=== PATIENT | female | born 1945 | race Caucasian/White ===

== ENCOUNTER 2016-08-12 08:39 | Outpatient (CLI) | payer MEDICARE | END 2016-08-12 08:40 | disposition home or self-care (01) | DX: E55.9 Vitamin D deficiency, unspecified (principal); E80.4 Gilbert syndrome; E78.2 Mixed hyperlipidemia; Z79.899 Other long term (current) drug therapy ==

== ENCOUNTER 2017-11-11 08:15 | Outpatient (CLI) | payer OTHER ==
[2017-11-11 08:40] LABS: BASOPHILS % (AUTO) 1.2 %; EOSINOPHILS # (AUTO) 0.4 10^3/uL (0.0-0.7); EOSINOPHILS % (AUTO) 9.2 %; HGB - HEMOGLOBIN 14.1 g/dL (12.0-16.0); LYMPHOCYTES # (AUTO) 1.4 10^3/uL (1.5-3.5); LYMPHOCYTES % (AUTO) 34.8 %; MEAN CORPUSCULAR HEMOGLOBIN 32.7 pg (27.0-31.0); MEAN CORPUSCULAR HGB CONC 34.6 g/dL (32.0-36.0); MEAN CORPUSCULAR VOLUME 94.4 fL (81.0-99.0); MEAN PLATELET VOLUME 7.4 fL (7.9-10.8); MONOCYTES # (AUTO) 0.4 10^3/uL (0.0-1.0); MONOCYTES % (AUTO) 9.2 %; NEUTROPHILS # (AUTO) 1.8 10^3/uL (1.5-6.6); NEUTROPHILS % (AUTO) 45.6 %; PLT - PLATELET COUNT 201 10^3/uL (130-450)
[2017-11-11 09:09] LABS: ALBUMIN 4.2 g/dL (3.2-5.5); ALBUMIN/GLOBULIN RATIO 1.8 (1.0-2.2); ALKALINE PHOSPHATASE 57 IU/L (42-121); ALT ALANINE AMINOTRANSFERASE 20 IU/L (10-60); AST ASPARTATE AMINOTRANSFERASE 24 IU/L (10-42); BILIRUBIN,TOTAL 1.2 mg/dL (0.2-1.0); BUN - BLOOD UREA NITROGEN 20 mg/dL (6-20); CALCIUM 9.2 mg/dL (8.5-10.3); CARBON DIOXIDE - CO2 29 mmol/L (21-32); CHLORIDE 103 mmol/L (101-111); CHOL/HDL RATIO 2.9 (<4.4); CHOLESTEROL 267 mg/dL; CREATININE 0.8 mg/dL (0.4-1.0); GFR - MDRD 71 (>89); GLUCOSE 94 mg/dL (70-100); HDL CHOLESTEROL 91 mg/dL; LDL CHOLESTEROL,CALCULATED 164 mg/dL; LDL/HDL RATIO 1.8 (<4.4); SODIUM 141 mmol/L (135-145); TOTAL PROTEIN 6.5 g/dL (6.7-8.2); VLDL CHOLESTEROL 12 mg/dL
[2017-11-12 13:25] LABS: HEPATITIS C ANTIBODY NON-REACTIVE (NON-REACTIVE)
== END 2017-11-11 08:16 | disposition home or self-care (01) ==
LOC: LAB 08:15
PROVIDERS: ATTEND Physician Assistant Medical
DX: E55.9 Vitamin D deficiency, unspecified (principal); M81.0 Age-related osteoporosis without current pathological fracture; F41.9 Anxiety disorder, unspecified; Z79.899 Other long term (current) drug therapy; Z13.818 Encounter for screening for other digestive system disorders; E78.2 Mixed hyperlipidemia
CPT/HCPCS: 36415; 80053; 80061; 82306; 83721; 84443; 85025; 86803

== ENCOUNTER 2017-11-24 13:25 | Outpatient (CLI) | payer OTHER ==
--- NOTE | 2017-11-24 15:52 | DEXA Report ---
Procedure Date: 11/24/2017 Accession Number: [id number] / [id number] Procedure: DEX - Dexa Spine and/or Hip CPT Code: FULL RESULT: EXAM: DUAL EMISSION X-RAY ABSORPTIOMETRY (DXA) SCAN EXAM DATE: 11/24/2017 02:04 PM. CLINICAL HISTORY: Postmenopausal, steroid use. COMPARISON: None. ADDITIONAL PATIENT INFORMATION: None. TECHNIQUE: Dual energy x-ray absorptiometry (DXA) was performed on a [employer] System. Regions measured at the AP spine, femoral neck, and if needed, forearm. TECHNIQUE LIMITATIONS/EXCLUSIONS: None. FINDINGS: Lumbar Spine: Bone mineral density 0.822 g/sq cm, T-score -3.0, Z-score -1.1. Femoral Neck: Bone mineral density 0.710 g/sq cm, T-score -2.4, Z-score -0.5. Total Hip: Bone mineral density 0.769 g/sq cm, T-score -1.9, Z-score -0.3. IMPRESSION: Osteoporosis. The fracture risk is high. World Health Organization (WHO) Reporting guidelines (based on lowest BMD) for postmenopausal and perimenopausal women, men age 50 years and older: Normal: T-score at or greater than -1.0 Osteopenia: T-score between -1.1 to -2.4 Osteoporosis: T-score at or less than -2.5 RADIA
== END 2017-11-24 13:26 | disposition home or self-care (01) ==
LOC: DI 13:25
PROVIDERS: ATTEND Physician Assistant Medical
DX: M81.0 Age-related osteoporosis without current pathological fracture (principal); Z78.0 Asymptomatic menopausal state
CPT/HCPCS: 77080

== ENCOUNTER 2017-12-22 08:05 | Outpatient (CLI) | payer OTHER ==
--- NOTE | 2017-12-23 09:32 | Mammography Report ---
Reason: SCREENING MAMMO Procedure Date: 12/22/2017 Accession Number: [id number] / [id number] Procedure: EVERARDO - Screening Mammo Dig Bilat CPT Code: FULL RESULT: EXAM: Screening Mammo Dig Bilat DATE: 12/22/2017 8:39 AM CLINICAL HISTORY: 72-year-old female with history of late childbearing and history of breast biopsy. TECHNIQUE: Bilateral CC and MLO views were obtained. COMPARISON: 08/29/2015, 09/08/2013, 09/08/2012, 02/18/2011. FINDINGS: The breasts demonstrate heterogeneously dense fibroglandular parenchyma bilaterally. Typically benign vascular calcifications are seen in the right breast. No suspicious masses, clustered microcalcifications, or regions of architectural distortion are identified. IMPRESSION: Benign findings RECOMMENDATION: Routine annual screening unless otherwise clinically indicated. BIRADS CATEGORY 2: Benign findings STANDARD QUALIFYING STATEMENTS: 1. This examination was reviewed without the aid of Computer-Aided Detection (CAD). 2. A negative or benign imaging report should not delay biopsy if clinically suspicious findings are present. Consider surgical consultation if warrented. More than 5% of cancers are not identified by imaging. 3. Dense breasts may obscure an underlying neoplasm.
== END 2017-12-22 08:06 | disposition home or self-care (01) ==
LOC: DI 08:05
PROVIDERS: ATTEND Physician Assistant Medical
DX: Z12.31 Encounter for screening mammogram for malignant neoplasm of breast (principal)
CPT/HCPCS: 77067

== ENCOUNTER 2019-12-13 10:30 | Outpatient (CLI) | payer MEDICARE | END 2019-12-13 10:31 | disposition home or self-care (01) | LOC: LAB.R 10:30 | PROVIDERS: ATTEND Physician Assistant | DX: Z11.59 Encounter for screening for other viral diseases (principal); Z20.828 Contact with and (suspected) exposure to other viral communicable diseases ==

== ENCOUNTER 2020-01-24 12:25 | Outpatient (CLI) | payer MEDICARE ==
--- NOTE | 2020-01-25 12:02 | Mammography Report ---
BILATERAL DIGITAL SCREENING MAMMOGRAM 3D/2D: 01/24/2020 CLINICAL: Routine screening. Comparison is made to exams dated: 12/22/2017 mammogram and 08/29/2015 mammogram - [facility]. There are scattered fibroglandular elements in both breasts. No significant masses, calcifications, or other findings are seen in either breast. There has been no significant interval change. IMPRESSION: NEGATIVE There is no mammographic evidence of malignancy. A 1 year screening mammogram is recommended. This exam was interpreted at Station ID: [id number]. NOTE: For mammograms, a report in lay terms will be sent to the patient. Approximately 15% of breast malignancies will not be visualized mammographically. In the management of a palpable breast mass, a negative mammogram must not discourage biopsy of a clinically suspicious lesion. Electronically Signed By: Jm peterson/rolando:01/24/2020 17:33:03 ACR BI-RADS Category 1: Negative 3341F PARENCHYMAL PATTERN: (A) - The breast(s) demonstrate(s) scattered fibroglandular densities. BI-RADS CATEGORY: (1) - 1 RECOMMENDATION: (ANNUAL) - Recommend routine annual screening mammography. [id number] 1 year screening LATERALITY: (B)
== END 2020-01-24 12:26 | disposition home or self-care (01) ==
LOC: DI.N 12:25
PROVIDERS: ATTEND Physician Assistant
DX: Z12.31 Encounter for screening mammogram for malignant neoplasm of breast (principal)
CPT/HCPCS: 77063; 77067

== ENCOUNTER 2020-08-15 13:39 | Outpatient (CLI) | payer MEDICARE | END 2020-08-15 13:40 | disposition home or self-care (01) | LOC: COV 13:39 | PROVIDERS: ATTEND Psychiatry & Neurology Neurology | DX: Z01.812 Encounter for preprocedural laboratory examination (principal); Z20.822 Contact with and (suspected) exposure to COVID-19 ==

== ENCOUNTER 2020-12-03 09:54 | Outpatient (CLI) | payer MEDICARE ==
--- NOTE | 2020-12-03 12:01 | DEXA Report ---
PROCEDURE: Dexa Spine and/or Hip INDICATIONS: OSTEOPOROSIS TECHNIQUE: Dual energy x-ray absorptiometry (DXA) was performed on a [employer] System. Regions measur ed are the AP Spine, femoral neck, and if needed forearm. COMPARISON: 11/24/2017 FINDINGS: Lumbar Spine: Bone Mineral Density 0.840 g/cm/cm,T score -2.8, osteoporosis, change from previous 0.0% Left Hip: Bone Mineral Density 0.767 g/cm/cm,T score -1.9, osteopenia, change from previous -0.3% Left Femoral Neck: Bone Mineral Density 0.709 g/cm/cm, T score -2.4, osteopenia (T score greater or equal to -1.0: NORMAL) (T score from -1.1 to -2.4: OSTEOPENIA) (T score less than or equal to -2.5 to: OSTEOPOROSIS) Impression: 1. Osteoporosis puts the patient at a high-risk of fracture. 2. There has been no significant interval change. Patients with diagnosis of osteoporosis or osteopenia should have regular bone mineral density assess ment. For those eligible for Medicare, routine testing is allowed once every 2 years. Testing frequ ency can be increased for patients who have rapidly progressing disease or for those who are receivin g medical therapy to restore bone mass. Reviewed by: Tracie Dudley MD on 12/03/2020 12:00 PM PDT Approved by: Tracie Dudley MD on 12/03/2020 12:00 PM PDT Station ID: [id number]
== END 2020-12-03 09:55 | disposition home or self-care (01) ==
LOC: DI 09:54
PROVIDERS: ATTEND Physician Assistant
DX: M81.0 Age-related osteoporosis without current pathological fracture (principal)

== ENCOUNTER 2022-07-17 19:33 | Emergency (ER) | payer MEDICARE ==
--- NOTE | 2022-07-17 21:01 | ED Physician Documentation ---
PD HPI URI - Stated complaint Stated Complaint: SOA, INFECTION,CONFUSION,COUGH - Chief complaint Chief Complaint: Resp - History obtained from History obtained from: Patient - Additional information Additional information: Patient is a 77-year-old presenting for evaluation of a productive cough that is been present for 4 days. Patient states that she has had a cough productive of yellow sputum, nasal congestion and feeling fatigued for the past 4 days. She went to the walk-in clinic but they did not have x-ray available today so directed her to the emergency department for evaluation. She denies fever, chest pain, shortness of breath, abdominal pain, vomiting. She is traveled to [place] 3 weeks ago where she and her were camping. She reports coming back with a cough from that but she recovered for 2 weeks but has gotten sick again in the past 4 days. She denies known sick Exposures.She denies pain or swelling in her legs. Review of Systems Constitutional: denies: Fever Nose: reports: Congestion Cardiac: denies: Chest pain / pressure Respiratory: reports: Cough. denies: Dyspnea GI: denies: Abdominal Pain, Vomiting Musculoskeletal: denies: Extremity swelling Neurologic: denies: Headache PD PAST MEDICAL HISTORY - Past Medical History Cardiovascular: High cholesterol, Other Respiratory: Sleep apnea Endocrine/Autoimmune: None GI: None : None HEENT: None Psych: Anxiety Musculoskeletal: None Derm: None - Past Surgical History General: Colonoscopy /[employer]: Dilation and currettage - Present Medications Home Medications: Ambulatory Orders Medication Instructions Recorded Confirmed Fluticasone [Flonase] 2 sprays LACEY DAILY 02/18/16 02/18/16 clonazePAM [Clonazepam] 1 tab PO DAILY PRN 02/18/16 02/18/16 - Allergies Allergies/Adverse Reactions: Allergies Allergy/AdvReac Type Severity Reaction Status Date / Time codeine Allergy Unknown Verified 07/17/22 19:37 tramadol [From Ultram] Allergy Unknown Verified 07/17/22 19:37 - Social History Does the pt smoke?: No Smoking Status: Never smoker PD ED PE NORMAL - General General: Alert and oriented X 3, No acute distress, Well developed/nourished - HEENT HEENT: Atraumatic, Moist mucous membranes, Pharynx benign - Neck Neck: Supple, no meningeal sign - Cardiac Cardiac: RRR, No murmur - Respiratory Respiratory: No respiratory distress, Clear bilaterally - Abdomen Abdomen: Soft, Non tender - Derm Derm: Warm and dry - Extremities Extremities: No edema, No calf tenderness / cord - Neuro Neuro: Normal speech Results - Vitals Vitals: Vital Signs - 24 hr 07/17/22 07/17/22 07/17/22 19:38 21:40 22:10 Temperature 36.7 C Heart Rate 90 79 82 Respiratory 16 16 16 Rate Blood Pressure 140/70 H 130/81 H 146/79 H O2 Saturation 98 97 100 Oxygen O2 Source Room air - Labs Labs: Laboratory Tests 07/17/22 07/17/22 07/17/22 20:58 21:00 21:00 WBC 2.8 L RBC 4.29 Hgb 13.4 Hct 40.6 MCV 94.6 MCH 31.2 H MCHC 33.0 RDW 12.7 Plt Count 131 MPV 9.1 Neut # (Auto) Not Reportable Lymph # (Auto) Not Reportable [place] # (Auto) Not Reportable Eos # (Auto) Not Reportable Baso # (Auto) Not Reportable Absolute Nucleated RBC Not Reportable Total Counted 100 Band Neuts % (Manual) 1 Reactive Lymphs % (Man) 21 Abnorm Lymph % (Manual) 0 Nucleated RBC % Not Reportable Neutrophils # (Manual) 1.7 Lymphocytes # (Manual) 1.0 L Monocytes # (Manual) 0.1 Eosinophils # (Manual) 0.0 Basophils # (Manual) 0.0 Differential Comment MANUAL DIFFERENTIAL Platelet Estimate NORMAL (130-450,000) Platelet Morphology NORMAL APPEARANCE RBC Morph Micro Appear NORMAL APPEARANCE Sodium 138 Potassium 3.6 Chloride 103 Carbon Dioxide 29 Anion Gap 6.0 BUN 12 Creatinine 0.7 Estimated GFR (MDRD) 82 L Glucose 96 Calcium 8.3 L Total Bilirubin 0.7 AST 25 ALT 24 Alkaline Phosphatase 52 Total Protein 6.5 L Albumin 4.0 Globulin 2.5 Albumin/Globulin Ratio 1.6 Nasal Adenovirus (PCR) NOT DETECTED Nasal B. parapertussis DNA (PCR) NOT DETECTED Nasal Coronavir 229E PCR NOT DETECTED Nasal Coronavir HKU1 PCR NOT DETECTED Nasal Coronavir NL63 PCR NOT DETECTED Nasal Coronavir OC43 PCR NOT DETECTED Nasal Enterovir/Rhinovir PCR NOT DETECTED Nasal Influenza B PCR NOT DETECTED Nasal Influenza A PCR NOT DETECTED Nasal Parainfluen 1 PCR DETECTED A Nasal Parainfluen 2 PCR NOT DETECTED Nasal Parainfluen 3 PCR NOT DETECTED Nasal Parainfluen 4 PCR NOT DETECTED Nasal RSV (PCR) NOT DETECTED Nasal B.pertussis DNA PCR NOT DETECTED Nasal C.pneumoniae (PCR) NOT DETECTED [place] Human Metapneumo PCR NOT DETECTED Nasal M.pneumoniae (PCR) NOT DETECTED Nasal SARS-CoV-2 (PCR) NOT DETECTED PD Medical Decision Making - ED course Complexity details: reviewed results, re-evaluated patient, d/w patient ED course: Patient is a 77-year-old presenting for evaluation of 4 days of productive cough and feeling fatigued. She is afebrile with stable vital signs. Her lung sounds are clear.She is not labored with her breathing. She denies chest pain or feeling short of air.CBC and chemistries were reviewed. Patient has chronic leukopenia.Chemistries are without significant findings. Her chest x-ray which I reviewed does not show a consolidation or effusion. Her respiratory swab is positive for parainfluenza.Patient was counseled that her symptoms are likely related to a viral infection caused by parainfluenza and to continue with supportive care. She is advised on concerning symptoms to return for. Departure - Departure Disposition: 01 Home, Self Care Clinical Impression: Parainfluenza infection Condition: Stable Instructions: ED Viral Syndrome Comments: Your chest x-ray does not show signs of pneumonia. Your respiratory swab is positive for a common cold virus called parainfluenza.Please continue with rest and Hydration. If you develop any worsening symptoms such as shortness of breath or have any new concerns please return to the emergency department. Discharge Date/Time: 07/17/22 22:10
[2022-07-17 21:08] LABS: BASOPHILS % (AUTO) 0.4 %; EOSINOPHILS % (AUTO) 1.1 %; HCT - HEMATOCRIT 40.6 % (37.0-47.0); HGB - HEMOGLOBIN 13.4 g/dL (12.0-16.0); LYMPHOCYTES % (AUTO) 33.5 %; MEAN CORPUSCULAR HEMOGLOBIN 31.2 pg (27.0-31.0); MEAN CORPUSCULAR VOLUME 94.6 fL (81.0-99.0); MEAN PLATELET VOLUME 9.1 fL (7.9-10.8); MONOCYTES % (AUTO) 10.1 %; NEUTROPHILS % (AUTO) 54.9 %; PLT - PLATELET COUNT 131 10^3/uL (130-450); RED BLOOD COUNT 4.29 10^6/uL (4.20-5.40); RED CELL DISTRIBUTION WIDTH 12.7 % (12.0-15.0); WHITE BLOOD COUNT 2.8 x10^3/uL (4.8-10.8)
[2022-07-17 21:12] LABS: ABNORMAL LYMPHS % (MANUAL) 0 %
[2022-07-17 21:18] LABS: ALBUMIN/GLOBULIN RATIO 1.6 (1.0-2.2); BILIRUBIN,TOTAL 0.7 mg/dL (0.2-1.0); CALCIUM 8.3 mg/dL (8.5-10.3); CREATININE 0.7 mg/dL (0.4-1.0); POTASSIUM 3.6 mmol/L (3.5-5.0); TOTAL PROTEIN 6.5 g/dL (6.7-8.2)
[2022-07-17 21:34] LABS: BAND NEUTROPHILS % (MANUAL) 1 %; LYMPHOCYTES % (MANUAL) 13 %; MONOCYTES # (MANUAL) 0.1 10^3/uL (0.0-1.0); NEUTROPHILS # (MANUAL) 1.7 10^3/uL (1.5-6.6); PLATELET ESTIMATE, MANUAL NORMAL (130-450,000) (NORMAL); PLATELET MORPHOLOGY NORMAL APPEARANCE (NORMAL); RBC MORPHOLOGY (MULTIPLE) NORMAL APPEARANCE (NORMAL); REACTIVE LYMPHS % (MANUAL) 21 %
[2022-07-17 21:36] LABS: DIFFERENTIAL COMMENT MANUAL DIFFERENTIAL
--- NOTE | 2022-07-17 21:52 | XRAY Report ---
PROCEDURE: Chest 1 View X-Ray INDICATIONS: cough x 4 days TECHNIQUE: One view of the chest was acquired. COMPARISON: CXR 05/08/2014. FINDINGS: Surgical changes and devices: None. Lungs and pleura: No pleural effusions or pneumothorax. Lungs appear clear. Prominent lung volumes. Mediastinum: Mediastinal contours appear normal. Heart size is normal. Bones and chest wall: No suspicious bony lesions. Overlying soft tissues appear unremarkable. IMPRESSION: No acute cardiopulmonary abnormality. Reviewed by: Jareth Stevenson MD on 07/17/2022 9:51 PM PDT Approved by: Jareth Stevenson MD on 07/17/2022 9:51 PM PDT Station ID: [id number]
[2022-07-17 21:56] LABS: B. PARAPERTUSSIS- RESP PCR PAN NOT DETECTED; B. PERTUSSIS- RESP PCR PANEL NOT DETECTED; C. PNEUMONIAE- RESP PCR PANEL NOT DETECTED; CORONAVIRUS 229E-RESP PCR NOT DETECTED; CORONAVIRUS HKU1-RESP PCR NOT DETECTED; CORONAVIRUS NL63-RESP PCR NOT DETECTED; CORONAVIRUS OC43-RESP PCR NOT DETECTED; HUMAN METAPNEUMOVIRUS NOT DETECTED; INFLUENZA A- RESP PCR PANEL NOT DETECTED; INFLUENZA B - RESP PCR PANEL NOT DETECTED; M. PNEUMONIAE- RESP PCR PANEL NOT DETECTED; PARAINFLUENZA VIRUS 1 DETECTED; PARAINFLUENZA VIRUS 2 NOT DETECTED; PARAINFLUENZA VIRUS 3 NOT DETECTED; PARAINFLUENZA VIRUS 4 NOT DETECTED; RHINOVIRUS/ENTEROVIRUS NOT DETECTED; RSV- RESP PCR PANEL NOT DETECTED; SARS-CoV-2 -RESP PCR PANEL NOT DETECTED
[2022-07-17 22:11] VITALS: BP 146/79
== END 2022-07-17 22:10 | disposition home or self-care (01) ==
LOC: ED 19:33
DX: B34.8 Other viral infections of unspecified site (principal); Z20.822 Contact with and (suspected) exposure to COVID-19
CPT/HCPCS: 36415; 80053; 85025; 87633; 99283; 99284

== ENCOUNTER 2022-11-21 08:10 | Outpatient (CLI) | payer MEDICARE ==
--- NOTE | 2022-11-21 09:52 | DEXA Report ---
PROCEDURE: Dexa Spine and/or Hip INDICATIONS: OSTEOPOROSIS TECHNIQUE: Dual energy x-ray absorptiometry (DXA) was performed on a [email or web address] System. Regions measur ed are the AP Spine, femoral neck, and if needed forearm. COMPARISON: 12/03/2020 FINDINGS: Lumbar Spine: Bone Mineral Density 0.846 g/cm/cm,T score -3.0. Osteoporosis Left Femoral Neck: Bone Mineral Density 0.691 g/cm/cm, T score -2.5. Osteoporosis Left Hip: Bone Mineral Density 0.745 g/cm/cm,T score -2.1. Osteopenia (T score greater or equal to -1.0: NORMAL) (T score from -1.1 to -2.4: OSTEOPENIA) (T score less than or equal to -2.5 to: OSTEOPOROSIS) Impression: By WHO criteria, this patient has osteoporosis. Osteoporosis of the lumbar spine. Osteopenia of the hip. Patients with diagnosis of osteoporosis or osteopenia should have regular bone mineral density assess ment. For those eligible for Medicare, routine testing is allowed once every 2 years. Testing frequ ency can be increased for patients who have rapidly progressing disease or for those who are receivin g medical therapy to restore bone mass. Reviewed by: Shivam Vásquez on 11/21/2022 9:50 AM PDT Approved by: Shivam Vásquez on 11/21/2022 9:50 AM PDT Station ID: [id number]
== END 2022-11-21 08:11 | disposition home or self-care (01) ==
LOC: DI 08:10
PROVIDERS: ATTEND Internal Medicine
DX: M81.0 Age-related osteoporosis without current pathological fracture (principal)

== ENCOUNTER 2023-04-23 11:44 | Outpatient (CLI) | payer MEDICARE ==
--- NOTE | 2023-04-23 12:08 | XRAY Report ---
PROCEDURE: Hip w/Pelvis 2-3V RT INDICATIONS: RIGHT HIP JOINTPAIN TECHNIQUE: 2 views of the hip were acquired. COMPARISON: None. FINDINGS: Bones: No fractures or dislocations. No suspicious bony lesions. Soft tissues: No suspicious soft tissue calcifications or masses. IMPRESSION: No acute fracture. No osseous lesion. If symptoms and/or clinical suspicion for pathology continue, f urther assessment with repeat plain films, or advanced imaging (e.g., CT, MRI, or bone scan) is recom mended for further assessment. Reviewed by: Preston Lincoln MD on 04/23/2023 12:07 PM PST Approved by: Preston Lincoln MD on 04/23/2023 12:07 PM PST Station ID: [id number]
== END 2023-04-23 11:45 | disposition home or self-care (01) ==
LOC: DI 11:44
PROVIDERS: ATTEND Internal Medicine
DX: M25.551 Pain in right hip (principal)

== ENCOUNTER 2023-05-04 12:27 | Outpatient (CLI) | payer MEDICARE ==
--- NOTE | 2023-05-04 16:47 | CT Report ---
PROCEDURE: Lower Extremity RT WO INDICATIONS: RIGHT HIP PAIN TECHNIQUE: Noncontrast 3-mm axial sections acquired from the distal tibial shaft to the talar dome, with coronal and sagittal reformats. For radiation dose reduction, the following was used: automated exposure c ontrol, adjustment of mA and/or kV according to patient size. COMPARISON: Pelvic and hip radiographs dated 04/23/2023. FINDINGS: Image quality: Excellent. Bones: Symmetric appearing moderate bilateral hip joint osteoarthritic changes are seen with signifi cant joint space narrowing, subchondral sclerosis and marginal osteophyte formation. No acute fractur e or dislocation. No evidence of avascular necrosis of femoral head. Bilateral sacroiliac joint osteo arthritic changes are seen. No evidence of ankylosis or bony erosion. Degenerative disc disease in vi sualized lower lumbar spine is seen. There is no suspicious bony lesions. No evidence of sacral insuf ficiency fracture. Soft tissues: There is small to moderate right hip joint effusion. No calcified intra-articular loos e bodies. No significant left hip joint effusion is seen. No abnormal pelvic or hip soft tissue calci fications. No pelvic free fluid or free air. No abnormal bowel wall thickening. Bladder wall thicknes s is normal. No pelvic lymphadenopathy. No soft tissue mass or drainable fluid collection. Questionab le small amount of fluid within bilateral trochanteric bursa is seen and may represent low-grade troc hanteric bursitis. Impression: 1. Symmetric appearing moderate bilateral hip joint osteoarthritis. No pelvic or hip fracture. No ky dence of avascular necrosis. Degenerative disc disease in visualized lower lumbar spine. 2. Small amount of fluid within bilateral trochanteric bursa which may indicate trochanteric bursitis . Small to moderate right hip joint effusion. No calcified intra-articular loose bodies. No abnormal soft tissue calcifications. No soft tissue mass or drainable fluid collection. No pelvic free fluid o r free air. Reviewed by: Santosh Short MD on 05/04/2023 4:45 PM PST Approved by: Santosh Short MD on 05/04/2023 4:45 PM PST Station ID: [id number]
== END 2023-05-04 12:28 | disposition home or self-care (01) ==
LOC: DI 12:27
PROVIDERS: ATTEND Internal Medicine
DX: M16.0 Bilateral primary osteoarthritis of hip (principal); M51.36 Other intervertebral disc degeneration, lumbar region; M25.451 Effusion, right hip

== ENCOUNTER 2023-11-10 11:26 | Outpatient (CLI) | payer MEDICARE ==
--- NOTE | 2023-11-11 08:08 | Mammography Report ---
BILATERAL DIGITAL SCREENING MAMMOGRAM 3D/2D: 11/10/2023 CLINICAL: Routine screening. Comparison is made to exams dated: 10/17/2021 mammogram, 01/24/2020 mammogram, 12/22/2017 mammogram, mammogram, and 09/08/2013 mammogram - [facility]. There are scattered areas of fibroglandular density in both breasts (category b / 25%-50% glandular t issue). No significant masses, calcifications, or other findings are seen in either breast. There has been no significant interval change. IMPRESSION: NEGATIVE There is no mammographic evidence of malignancy. A 1 year screening mammogram is recommended. Based on the Tyrer Cuzick model (a risk assessment model) the patient's lifetime risk is 4.2% and her 10 year risk is 0.0%. According to the ACR, ACS, and NCCN guidelines, an annual breast MRI exam juan antonio g with mammogram is recommended if the patient's lifetime risk is 20% or greater. This exam was interpreted at Station ID: [id number]. NOTE: For mammograms, a report in lay terms will be sent to the patient. Approximately 15% of breast malignancies will not be visualized mammographically. In the management of a palpable breast mass, a negative mammogram must not discourage biopsy of a clinically suspicious lesion. Electronically Signed By: Patti Napier M.D., Ph.D. ivania/rolando:11/10/2023 16:38:27 letter sent: No_Letter ACR BI-RADS Category 1: Negative 3341F PARENCHYMAL PATTERN: (A) - The breast(s) demonstrate(s) scattered fibroglandular densities. BI-RADS CATEGORY: (1) - 1 RECOMMENDATION: (ANNUAL) - Recommend routine annual screening mammography. [id number] 1 year screening LATERALITY: (B)
== END 2023-11-10 11:27 | disposition home or self-care (01) ==
LOC: DI 11:26
PROVIDERS: ATTEND Internal Medicine
DX: Z12.31 Encounter for screening mammogram for malignant neoplasm of breast (principal); R92.323 Mammographic fibroglandular density, bilateral breasts